=== PATIENT | female | born 1950 | race Caucasian/White ===

== ENCOUNTER 2017-01-29 14:07 | Emergency (ER) | payer SELFPAY ==
[~2017-01-29] VITALS: Ht 149.9 cm; Wt 64.0 kg
[~2017-01-29 14:07] MED LIST: ADVAIR; PROCHLORPERAZINE; QVAR
[2017-01-29] MEDS ORDERED: KETOROLAC 30MG/ML VIAL IM ONE (18:00)
[2017-01-29 18:07] VITALS: BP 124/77
== END 2017-01-29 19:13 | disposition home or self-care (01) ==
LOC: ER 19:12
DX: M54.2 Cervicalgia (principal); G89.29 Other chronic pain; J45.909 Unspecified asthma, uncomplicated; M19.90 Unspecified osteoarthritis, unspecified site; F43.9 Reaction to severe stress, unspecified
CPT/HCPCS: 96372; 99283; J1885; Z7610

== ENCOUNTER 2017-12-15 15:17 | Emergency (ER) | payer OTHER ==
[~2017-12-15] VITALS: Ht 149.9 cm; Wt 55.0 kg
[2017-12-15 15:57] VITALS: BP 136/69
== END 2017-12-15 21:55 | disposition left against medical advice (07) ==
LOC: ER 15:17
DX: G89.29 Other chronic pain (principal); M54.2 Cervicalgia
CPT/HCPCS: 99281

== ENCOUNTER 2018-02-13 13:00 | Emergency (ER) | payer BC, OTHER ==
[~2018-02-13] VITALS: Ht 149.9 cm; Wt 55.0 kg
[2018-02-13] MEDS ORDERED: KETOROLAC 30MG/ML VIAL IM ONE (15:00)
[2018-02-13 16:38] VITALS: BP 125/71
== END 2018-02-13 16:39 | disposition home or self-care (01) ==
LOC: ER 14:15
DX: S62.102A Fracture of unspecified carpal bone, left wrist, initial encounter for closed fracture (principal); S80.02XA Contusion of left knee, initial encounter; M19.90 Unspecified osteoarthritis, unspecified site; J45.909 Unspecified asthma, uncomplicated; W18.39XA Other fall on same level, initial encounter; Y93.89 Activity, other specified; Y92.89 Other specified places as the place of occurrence of the external cause; Y99.8 Other external cause status
CPT/HCPCS: 29125; 73110; 96372; 99284; J1885

== ENCOUNTER 2025-03-13 13:45 | Emergency (ER) | payer BC, OTHER ==
[~2025-03-13] VITALS: Ht 160 cm; Wt 65.0 kg
[2025-03-13 13:50] VITALS: TEMP 36.4; O2SAT 97
[2025-03-13 16:14] LABS: BASOPHILS % 0.7 % (0.0-2.0); EOSINOPHILS % 1.8 % (0.0-5.0); HEMATOCRIT. 39.9 % (36.0-48.0); HEMOGLOBIN. 13.1 g/dL (12.0-16.0); LYMPHOCYTES % 11.5 % (20.0-50.0); MEAN PLATELET VOLUME 8.7 fl (7.4-10.4); MONOCYTES % 3.4 % (2.0-8.0); NEUTROPHILS % 82.6 % (40.0-76.0); PLATELET 303 x1000/uL (130-400); RED BLOOD CELL COUNT 5.20 mill/uL (4.2-5.4); RED CELL DISTRIBUTION WIDTH 17.1 % (11.6-14.6)
[2025-03-13 16:15] VITALS: BP 145/76; PULSE 81; RESP 16; O2SAT 100
[2025-03-13 16:27] LABS: CREATININE 0.9 mg/dL (0.6-1.0); UREA NITROGEN BLOOD 15 mg/dL (9-23)
[2025-03-13 16:29] LABS: ASPARTATE AMINOTRANSFERASE 26 IU/L (<34); BILIRUBIN TOTAL 0.6 mg/dL (0.1-1.0)
[2025-03-13 16:30] LABS: PROTEIN TOTAL 7.2 g/dL (6.0-8.3)
== END 2025-03-13 18:29 | disposition left against medical advice (07) ==
LOC: ER 13:45
DX: R11.2 Nausea with vomiting, unspecified (principal); J45.909 Unspecified asthma, uncomplicated; M19.90 Unspecified osteoarthritis, unspecified site; F10.90 Alcohol use, unspecified, uncomplicated; Z79.51 Long term (current) use of inhaled steroids; Y90.9 Presence of alcohol in blood, level not specified
CPT/HCPCS: 36415; 80053; 85025; 99283